=== PATIENT | male | born 1960 | race Caucasian/White ===

== ENCOUNTER → 2018-01-29 | Outpatient (CLI) | payer OTHER ==
[~2018-01-29] MED LIST: ALBU90OI INH; LEVSOD75 PO; METF500 PO; Norco 5-325 Ta1 EACH PO; Omeprazole20 M1; Prinivil10 MG PO; TERA5 PO
== END ==
LOC: LAB SHORT 11:00 → LAB 11:00
DX: R10.30 Lower abdominal pain, unspecified (principal); R19.5 Other fecal abnormalities
CPT/HCPCS: 87015; 87045; 87046; 87205; 87899

== ENCOUNTER 2019-02-16 08:07 | Day surgery (SDC) | payer OTHER ==
[~2019-02-16] VITALS: Ht 195.6 cm; Wt 97.5 kg
--- NOTE | 2019-02-16 09:28 | NUR ---
Ambulatory in Day SurgeryPatient states colon prep results clear. History, Chart, Medications and Allergies reviewed before start of procedure.LUNGS WITH FEW SCATTERED WZ THROUGH OUT, BUT SATS>90% ON RA. Patient confirms NPO status and agrees with scheduled surgery. Patient States Post-Procedure ride home has been arranged.[id number].
--- NOTE | 2019-02-16 10:06 | NUR ---
02/16/19 1006 Dora Culp History, Chart, Medications and Allergies reviewed before start of procedure.PATIENT DETERMINED TO BE ASA APPROPRIATE FOR PROPOFOL SEDATION PRIOR TO START OF PROCEDURE BY .MONITOR INTACT WITH CONTINUOUS PULSE OXIMETRY AND INTERMITTENT BP.3-LEAD EKG REVIEWED WITH PHYSICIAN PRIOR TO START OF PROCEDURE.O2 VIA N/C INTACT THROUGHOUT SEDATION/PROCEDURE.
--- NOTE | 2019-02-16 10:21 | NUR ---
INTO STEP VIA JACQUE. S/P COLONOSCOPY. PT A&OX3. DENIES PAIN OR NAUSEA. JOSEPH INITIATED.
--- NOTE | 2019-02-16 10:52 | NUR ---
Patient up to Ambulate independently. Gait steady. Discharge instructions reviewed with patient. Patient verbalizes understanding. Copy given to patient to take home. Discharged via wheelchair to private car for ride home.
== END 2019-02-16 10:53 | disposition home or self-care (01) ==
LOC: ORSCMMR 08:07 → SURS 08:10 → ORSCMMR 08:20 → ORD 09:30 → ORSCMMR 10:53
PROVIDERS: Internal Medicine Gastroenterology
PROC: 0DBN8ZX Excision of Sigmoid Colon, Via Natural or Artificial Opening Endoscopic, Diagnostic (ICD-10-PCS; principal; 2019-02-16 09:30)
PROC: 0DBP8ZX Excision of Rectum, Via Natural or Artificial Opening Endoscopic, Diagnostic (ICD-10-PCS; principal; 2019-02-16 09:30)
DX: R10.9 Unspecified abdominal pain (principal); D12.5 Benign neoplasm of sigmoid colon; Z86.010 Personal history of colon polyps; E11.9 Type 2 diabetes mellitus without complications; I10 Essential (primary) hypertension; F41.9 Anxiety disorder, unspecified; K21.9 Gastro-esophageal reflux disease without esophagitis; E03.9 Hypothyroidism, unspecified; Z79.899 Other long term (current) drug therapy
CPT/HCPCS: 82947; 88305; J2704; J7120

== ENCOUNTER → 2019-09-23 | Outpatient (CLI) | payer OTHER ==
[2019-09-23 20:20] LABS: Microalb/Creat Ratio UR, Rand 4.517 mg/g (0.000-30.000); Microalbumin, Random Urine 7.95 mg/L (0.000-20.000)
== END | disposition home or self-care (01) ==
LOC: LAB 13:41 → LAB SHORT 13:41
PROVIDERS: Nurse Practitioner Family
DX: E11.9 Type 2 diabetes mellitus without complications (principal)
CPT/HCPCS: 82043; 82570